=== PATIENT | female | born 1995 | race Caucasian/White ===

== ENCOUNTER 2018-10-27 12:35 | Inpatient (IN) | payer OTHER ==
[~2018-10-27 12:35] MED LIST: ELECTROLYTE-148 SOLN 1,000 ML IV SCH
[2018-10-27] MEDS ORDERED: CITRIC ACID/SODIUM CITRATE 30 ML UNIT-DOSE CUP PO ONE (12:48)
[2018-10-27] MEDS ORDERED: ELECTROLYTE-148 SOLN 1,000 ML IV SCH (13:00)
[2018-10-27 13:40] VITALS: BMI 47.2
[2018-10-27] MEDS ORDERED: OXYTOCIN 20 UNITS in 0.9% NS 20 UNIT/1,000 ML INFUS.BAG IV ONE (14:19)
[2018-10-27] MEDS ORDERED: morphine SULFATE/Preservative Free 0.5 MG/ML (1cc Syringe) ONE (14:22)
[2018-10-27] MEDS ORDERED: PROPOFOL 20 ML ONE ×2 (14:23)
[2018-10-27] MEDS ORDERED: SUCCINYLCHOLINE CHLORIDE 200 MG/10 ML VIAL ONE (14:23)
[2018-10-27] MEDS ORDERED: PHENYLEPHRINE HCL 10 MG/1 ML SINGLE DOSE VIAL ONE (14:23)
[2018-10-27] MEDS ORDERED: ceFAZolin SODIUM 1 GM VIAL ONE (14:23)
[2018-10-27] MEDS ORDERED: ePHEDrine SULFATE 50 MG/1 ML AMPULE ONE (14:24)
[2018-10-27] MEDS ORDERED: SODIUM CHLORIDE 0.9% P/F 10 ML VIAL IJ ONE (14:31)
[2018-10-27] MEDS ORDERED: OXYTOCIN 20 UNITS in 0.9% NS 40 UNIT/2,000 ML INFUS.BAG IV ONE (14:31)
--- NOTE | 2018-10-27 14:55 | HP ---
Past Medical History - Primary Care Physician PCP:: Walter Downing - Admission Chief Complaint: 39 weeks, previous c/s, request of repeat c/s History of Present Illness: 23 yo g 39 weeks, with 2 previous c/s requesting repeat c/s , risks of repeat c/s discussed ith patient, declined BTL at this time , aware of risks of future cx clp vx -3 mi, fhr cat 1, no contraction History Source: Patient Limitations to Obtaining History: No Limitations - Past Medical History ...: 4 ...Para: 2 ...Term: 3 ...: 0 ...Spon : 0 ...Induced : 0 ...Multiple Gestation: 0 ...LMP: 01/17/18 ... Weeks Gestation by Dates: 40.3 ...EDC by Dates: 10/24/18 ...EDC by Sono: 11/02/18 Infectious Disease: Yes: STD's, Other (hx of hsv, no recent out break on valterx prophyalctic) - Past Surgical History Past Surgical History: Yes: Hx Myomectomy: No Hx Transabdominal Cerclage: No - Smoking History Smoking history: Never smoked Have you smoked in the past 12 months: No - Alcohol/Substance Use Hx Alcohol Use: No - Social History Usual Living Arrangement: Yes: With Spouse History of Recent Travel: No Home Medications - Allergies Allergies/Adverse Reactions: Allergies Allergy/AdvReac Type Severity Reaction Status Date / Time No Known Allergies Allergy Verified 10/27/18 13:03 - Home Medications Home Medications: Ambulatory Orders Ferrous Sulfate [Feosol] 325 mg PO DAILY 08/13/14 Vit/Iron Fum/Folic AC [ Tablet] 1 each PO DAILY 08/13/14 Review of Systems - Review of Systems Constitutional: reports: No Symptoms Eyes: reports: No Symptoms HENT: reports: No Symptoms Neck: reports: No Symptoms Cardiovascular: reports: No Symptoms Respiratory: reports: No Symptoms Gastrointestinal: reports: No Symptoms Genitourinary: reports: No Symptoms Breasts: reports: No Symptoms Reported Musculoskeletal: reports: No Symptoms Integumentary: reports: No Symptoms Neurological: reports: No Symptoms Endocrine: reports: No Symptoms Hematology/Lymphatic: reports: No Symptoms Psychiatric: reports: No Symptoms Physical Exam - Maternity Vital Signs: Vital Signs Temperature 97.4 F L 10/27/18 13:00 Pulse Rate 104 H 10/27/18 13:00 Respiratory Rate 20 10/27/18 13:00 Blood Pressure 106/70 10/27/18 13:00 O2 Sat by Pulse Oximetry (%) Constitutional: Yes: Well Nourished, No Distress, Calm Eyes: Yes: WNL, Conjunctiva Clear, EOM Intact HENT: Yes: WNL, Atraumatic, Normocephalic Neck: Yes: WNL, Supple, Trachea Midline Cardiovascular: Yes: WNL, Regular Rate and Rhythm Breast(s): Yes: WNL - Abdominal Exam/OB Fundal Height: 40 Number of Fetuses: Single Presentation: Vertex Contractions: No Regularity: Irritability Intensity: Unaware Monitor Mode: External Heart Rate Location: [facility] Category: I Accelerations: Uniform Decelerations: None - Vaginal Exam/OB Vaginal Bleediing: No Speculum Exam: No Dilatation (cm): 0 Effacement (%): 0 Amniotic Membrane Status: Intact Presentation: Vertex/Position Station: -3 - Physical Exam Musculoskeletal: Yes: WNL Extremities: Yes: WNL Edema: Yes Edema: LLE: Trace, RLE: Trace Deep Tendon Reflex Grade: Normal +2 Hemorrhage Risk Assessment - Risk Factors Risk Score: 2 Risk Level: High Risk Problem List - Problems (1) with 39 completed weeks gestation Code(s): Z3A.39 - 39 WEEKS GESTATION OF (2) Previous section complicating Code(s): O34.219 - MATERNAL CARE FOR UNSP TYPE SCAR FROM PREVIOUS DEL (3) Obesity Code(s): E66.9 - OBESITY, UNSPECIFIED Qualifiers: Obesity type: due to excess calories Assessment/Plan repeat LST c/s , risks of procedure discussed , aware risks of infection, bleeding, injury to surrounding tissue , post op complication, DVT
[2018-10-27] MEDS ORDERED: oxyCODONE HCL 5 MG TABLET PO PRN (14:59)
[2018-10-27] MEDS ORDERED: IBUPROFEN 800 MG/8 ML IJ IVPB PRN (14:59)
[2018-10-27] MEDS ORDERED: METHYLERGONOVINE MALEATE 0.2 MG/1 ML AMP IM PRN (14:59)
[2018-10-27] MEDS ORDERED: WITCH HAZEL 50% (TUCKS) 40 PAD/JAR PAD TP PRN (14:59)
[2018-10-27] MEDS ORDERED: BENZOCAINE 28 GM HEMORRHOIDAL OINTMENT PR PRN (14:59)
[2018-10-27] MEDS ORDERED: diphenhydrAMINE HCL 25 MG CAPSULE (FP) PO PRN (14:59)
[2018-10-27] MEDS ORDERED: BENZOCAINE 20% 57 GM BOTTLE TP PRN (14:59)
[2018-10-27] MEDS ORDERED: OXYTOCIN 20 UNITS in 0.9% NS 20 UNIT/1,000 ML INFUS.BAG IV SCH (15:00)
[2018-10-27] MEDS ORDERED: DEXTROSE 5%-LACTATED RINGERS 1,000 ML IV SCH (15:00)
[2018-10-27] MEDS: OXYTOCIN 20 UNITS in 0.9% NS 20 UNIT/1,000 ML INFUS.BAG IV SCH ×2 (15:15→20:05)
[2018-10-27] MEDS ORDERED: KETOROLAC TROMETHAMINE 30 MG/1 ML VIAL ONE (15:23)
[2018-10-27] MEDS ORDERED: OXYTOCIN 10 UNITS/ML VIAL ONE (15:23)
[2018-10-27] MEDS ORDERED: morphine SULFATE/Preservative Free 0.5 MG/ML (1cc Syringe) EP ONE (16:16)
[2018-10-27] MEDS ORDERED: ONDANSETRON 4 MG/2 ML VIAL IVPUSH PRN (16:16)
--- NOTE | 2018-10-27 17:14 | OP ---
DATE OF OPERATION: 10/27/2018 PREOPERATIVE DIAGNOSES: , 39 weeks, 2 previous sections require of repeat section, declined tubal ligation. POSTOPERATIVE DIAGNOSES: , 39 weeks, 2 previous sections require of repeat section, declined tubal ligation. PROCEDURE: Repeat low segment transverse section and lysis of pelvic adhesions. SURGEON: Hannah Downing MD OFFICE WORKER: WANDER Cabrera ANESTHESIA: Spinal. ANESTHESIOLOGIST: Trina Martinez MD ESTIMATED BLOOD LOSS: 500 mL. FINDINGS: A live baby boy, 9 and 9, ROT position. OPERATION: Patient was taken to the operating room, and under adequate spinal anesthesia, abdomen and perineum was prepped and draped. Pfannenstiel abdominal skin incision was made over the previous incision. Abdominal wall was cut layer by layer until peritoneum was exposed and incised. Upon entering the abdominal cavity, there were multiple pelvic adhesions and omental adhesions to the peritoneum. These adhesions were lysed with cautery and hemostasis was established, and then the bladder was also entered into the anterior lower uterine segment. The bladder flap was developed, and bladder was dissected from the lower uterine with Metzenbaum scissors and bladder was pushed down. A low transverse uterine incision was made. Amniotic sac was entered. Clear fluid. Head delivered from right occiput transverse position. Nasopharynx was suctioned, and live baby boy was delivered. Placenta was delivered manually. Uterine cavity was cleaned of all the remaining tissue. Uterine incision was closed in 2 layers with first layer with 0 Biosyn continuous suture. The second layer with 0 Biosyn imbricating the first layer. There was some bleeding at the left uterine angle which where [id number] with 2-0 Biosyn was placed and hemostasis established. No active bleeding was seen. All the laparotomy pads, sponge, and instrument counts were correct. Both tubes and ovaries were normal. The peritoneum was closed with 0 Biosyn continuous suture. Muscles were brought together with interrupted suture of 0 Biosyn. Fascia was closed with 0 Biosyn continuous suture, subcutaneous fat with interrupted suture of 0 Biosyn, and the skin was closed with annetta. The patient tolerated the procedure well, left the OR in good condition. HANNAH DOWNING M.D. [id number]
[2018-10-27] MEDS ORDERED: CEFAZOLIN 1 GM/D5W 1 GM/50 ML BAG IVPB SCH (23:00)
[2018-10-27] MEDS: CEFAZOLIN 1 GM/D5W 1 GM/50 ML BAG IVPB SCH (23:06)
[2018-10-28] MEDS: CEFAZOLIN 1 GM/D5W 1 GM/50 ML BAG IVPB SCH (06:07)
[2018-10-28 08:24] LABS: BASO % 0.3 % (0-2.0); EOS % 0.6 % (0-4.5); HEMOGLOBIN 11.1 GM/dL (10.7-15.3); LYMPH % 21.5 % (8-40); MCH 29.1 pg (25.7-33.7); MCHC 33.8 g/dl (32.0-36.0); MEAN CELL VOLUME 86.2 fl (80-96); MONO % 5.7 % (3.8-10.2); NEUT % 71.9 % (42.8-82.8); PLATELET COUNT 155 K/MM3 (134-434); RBC 3.82 M/mm3 (3.60-5.2); RDW 15.6 % (11.6-15.6); WHITE BLOOD COUNT 7.6 K/mm3 (4.0-10.0)
--- NOTE | 2018-10-28 08:46 | PN ---
Progress Note (short form) - Note Progress Note: Post op day#1.S/P C Section under spinal anesthesia with duramorph uneventful.Patient stable and c/o little pain for which is on medication.No any anesthesia related problem.Patient DC from the anesthesia care.
[2018-10-28] MEDS: ENOXAPARIN NA (PORCINE) 40 MG/0.4 ML DISP.SYRIN SQ SCH (10:00)
[2018-10-28] MEDS ORDERED: ACETAMINOPHEN 325 MG TABLET (FP) PO PRN (13:21)
[2018-10-28] MEDS ORDERED: FLU VACCINE QUAD 60 MCG/0.5 ML (MDV 18-19) IM ONE (14:00)
[2018-10-28] MEDS ORDERED: DIPHTH,PERTUSS(ACELL),TET 0.5 ML DISP.SYRIN IM ONE (14:00)
--- NOTE | 2018-10-28 14:46 | PN ---
Post Progress Note - Subjective Subjective: 23yo Para 4 status post repeat , seen and evaluated. Doing well. Post Day: 1 Type of Delivery: Repeat C/S Vital Signs: Vital Signs Temperature 98.4 F 10/28/18 14:00 Pulse Rate 89 10/28/18 14:00 Respiratory Rate 20 10/28/18 14:00 Blood Pressure 120/73 10/28/18 14:00 O2 Sat by Pulse Oximetry (%) 100 10/27/18 17:25 Breast Exam: Yes: Soft Incision: Yes: Dressing dry and intact Abdomen/GI: Yes: Abdomen soft Lochia: Yes: Rubra Lochia, amount: Small Extremities: Yes: Calves non-tender (She's lying in bed) - Labs Labs: CBC WBC 7.6 K/mm3 (4.0-10.0) 10/28/18 08:00 RBC 3.82 M/mm3 (3.60-5.2) 10/28/18 08:00 Hgb 11.1 GM/dL (10.7-15.3) 10/28/18 08:00 Hct 33.0 % (32.4-45.2) 10/28/18 08:00 MCV 86.2 fl (80-96) 10/28/18 08:00 MCH 29.1 pg (25.7-33.7) 10/28/18 08:00 MCHC 33.8 g/dl (32.0-36.0) 10/28/18 08:00 RDW 15.6 % (11.6-15.6) 10/28/18 08:00 Plt Count 155 K/MM3 (134-434) D 10/28/18 08:00 MPV 8.0 fl (7.5-11.1) 10/28/18 08:00 Absolute Neuts (auto) 5.5 K/mm3 (1.5-8.0) 10/28/18 08:00 Neutrophils % 71.9 % (42.8-82.8) 10/28/18 08:00 Lymphocytes % 21.5 % (8-40) D 10/28/18 08:00 Monocytes % 5.7 % (3.8-10.2) 10/28/18 08:00 Eosinophils % 0.6 % (0-4.5) 10/28/18 08:00 Basophils % 0.3 % (0-2.0) 10/28/18 08:00 Nucleated RBC % 0 % (0-0) 10/28/18 08:00 Problem List - Problems (1) Status post repeat low transverse section Code(s): Z98.891 - HISTORY OF UTERINE SCAR FROM PREVIOUS SURGERY Assessment/Plan Status post repeat Ambulation Analgesia as needed Continue routine post op care
[2018-10-28] MEDS ORDERED: BISACODYL 10 MG SUPP.RECT RC PRN (14:59)
[2018-10-28] MEDS: SIMETHICONE 80 MG TAB.CHEW (FP) PO PRN (16:44)
[2018-10-28] MEDS: ACETAMINOPHEN 325 MG TABLET (FP) PO PRN (16:45)
[2018-10-29] MEDS: oxyCODONE HCL 5 MG TABLET PO PRN ×3 (00:52→22:01)
[2018-10-29] MEDS: SIMETHICONE 80 MG TAB.CHEW (FP) PO PRN ×2 (00:53→14:02)
[2018-10-29] MEDS: ACETAMINOPHEN 325 MG TABLET (FP) PO PRN ×2 (00:53→14:00)
--- NOTE | 2018-10-29 09:56 | PN ---
Post Progress Note - Subjective Subjective: pain scale 7/10 voiding without difficulty bm not done, passing flatus Post Day: 2 Type of Delivery: Repeat C/S Vital Signs: Vital Signs Temperature 98.3 F 10/29/18 09:43 Pulse Rate 79 10/29/18 09:43 Respiratory Rate 18 10/29/18 09:43 Blood Pressure 112/69 10/29/18 09:43 O2 Sat by Pulse Oximetry (%) 100 10/27/18 17:25 Breast Exam: Yes: Soft, Other (both breast & bottle feeding ). No: Engorged Uterus: Yes: Fundus Firm, Fundus below umbilicus, Non-tender Incision: Yes: Edinson intact. No: Redness, Oozing Abdomen/GI: Yes: Abdomen soft, Passing flatus, Tolerating PO (diet ). No: Abdominal Distention, Tender Lochia: Yes: Rubra Lochia, amount: Moderate Extremities: Yes: Calves non-tender Perineum: Yes: Intact Activity: Ambulating - Labs Labs: CBC WBC 7.6 K/mm3 (4.0-10.0) 10/28/18 08:00 RBC 3.82 M/mm3 (3.60-5.2) 10/28/18 08:00 Hgb 11.1 GM/dL (10.7-15.3) 10/28/18 08:00 Hct 33.0 % (32.4-45.2) 10/28/18 08:00 MCV 86.2 fl (80-96) 10/28/18 08:00 MCH 29.1 pg (25.7-33.7) 10/28/18 08:00 MCHC 33.8 g/dl (32.0-36.0) 10/28/18 08:00 RDW 15.6 % (11.6-15.6) 10/28/18 08:00 Plt Count 155 K/MM3 (134-434) D 10/28/18 08:00 MPV 8.0 fl (7.5-11.1) 10/28/18 08:00 Absolute Neuts (auto) 5.5 K/mm3 (1.5-8.0) 10/28/18 08:00 Neutrophils % 71.9 % (42.8-82.8) 10/28/18 08:00 Lymphocytes % 21.5 % (8-40) D 10/28/18 08:00 Monocytes % 5.7 % (3.8-10.2) 10/28/18 08:00 Eosinophils % 0.6 % (0-4.5) 10/28/18 08:00 Basophils % 0.3 % (0-2.0) 10/28/18 08:00 Nucleated RBC % 0 % (0-0) 10/28/18 08:00 Problem List - Problems (1) delivery delivered Code(s): O82 - ENCOUNTER FOR DELIVERY WITHOUT INDICATION (2) Encounter for care after hospital delivery Code(s): Z39.2 - ENCOUNTER FOR ROUTINE FOLLOW-UP Assessment/Plan stable. ct post op care may consider discharge tomorrow.
[2018-10-29] MEDS: ENOXAPARIN NA (PORCINE) 40 MG/0.4 ML DISP.SYRIN SQ SCH (10:36)
[2018-10-29] MEDS ORDERED: SENNOSIDES/DOCUSATE COMBO (SENNA PLUS) TABLET (UD) PO PRN (22:00)
[2018-10-29] MEDS: IBUPROFEN 600 MG TABLET (FP) PO PRN (22:01)
--- NOTE | 2018-10-30 06:38 | PN ---
Post Progress Note Type of Delivery: Repeat C/S Vital Signs: Vital Signs Temperature 97.9 F 10/29/18 21:00 Pulse Rate 91 H 10/29/18 21:00 Respiratory Rate 18 10/29/18 21:00 Blood Pressure 106/67 10/29/18 21:00 O2 Sat by Pulse Oximetry (%) 100 10/27/18 17:25 Uterus: Yes: Fundus below umbilicus Incision: Yes: Dressing dry and intact Abdomen/GI: Yes: Abdomen soft Lochia: Yes: Rubra Lochia, amount: Small Extremities: Yes: Calves non-tender Perineum: Yes: Intact - Labs Labs: CBC WBC 7.6 K/mm3 (4.0-10.0) 10/28/18 08:00 RBC 3.82 M/mm3 (3.60-5.2) 10/28/18 08:00 Hgb 11.1 GM/dL (10.7-15.3) 10/28/18 08:00 Hct 33.0 % (32.4-45.2) 10/28/18 08:00 MCV 86.2 fl (80-96) 10/28/18 08:00 MCH 29.1 pg (25.7-33.7) 10/28/18 08:00 MCHC 33.8 g/dl (32.0-36.0) 10/28/18 08:00 RDW 15.6 % (11.6-15.6) 10/28/18 08:00 Plt Count 155 K/MM3 (134-434) D 10/28/18 08:00 MPV 8.0 fl (7.5-11.1) 10/28/18 08:00 Absolute Neuts (auto) 5.5 K/mm3 (1.5-8.0) 10/28/18 08:00 Neutrophils % 71.9 % (42.8-82.8) 10/28/18 08:00 Lymphocytes % 21.5 % (8-40) D 10/28/18 08:00 Monocytes % 5.7 % (3.8-10.2) 10/28/18 08:00 Eosinophils % 0.6 % (0-4.5) 10/28/18 08:00 Basophils % 0.3 % (0-2.0) 10/28/18 08:00 Nucleated RBC % 0 % (0-0) 10/28/18 08:00 Assessment/Plan 23yo s/p RLTCS, POD#3 Routine PP carLle Labs reviewed Anticipate dc to home by POD#4 Carrington Molina
[2018-10-30 08:09] LABS: BASO % 0.4 % (0-2.0); EOS % 2.1 % (0-4.5); HEMATOCRIT 30.7 % (32.4-45.2); HEMOGLOBIN 10.3 GM/dL (10.7-15.3); LYMPH % 38.5 % (8-40); MCHC 33.6 g/dl (32.0-36.0); MEAN CELL VOLUME 86.4 fl (80-96); MEAN PLT VOLUME 8.1 fl (7.5-11.1); MONO % 6.6 % (3.8-10.2); NEUT % 52.4 % (42.8-82.8); PLATELET COUNT 163 K/MM3 (134-434); RBC 3.56 M/mm3 (3.60-5.2); RDW 15.7 % (11.6-15.6); WHITE BLOOD COUNT 6.6 K/mm3 (4.0-10.0)
[2018-10-30] MEDS: ENOXAPARIN NA (PORCINE) 40 MG/0.4 ML DISP.SYRIN SQ SCH (09:13)
[2018-10-31] MEDS: ACETAMINOPHEN 325 MG TABLET (FP) PO PRN (00:11)
[2018-10-31] MEDS: IBUPROFEN 600 MG TABLET (FP) PO PRN (00:11)
--- NOTE | 2018-10-31 07:57 | DS ---
Physical Exam-COLLECTION ADMINISTRATOR Vital Signs: Vital Signs Temperature 97.9 F 10/30/18 21:29 Pulse Rate 76 10/30/18 21:29 Respiratory Rate 20 10/30/18 21:29 Blood Pressure 120/68 10/30/18 21:29 O2 Sat by Pulse Oximetry (%) 100 10/27/18 17:25 Constitutional: Yes: Well Nourished, No Distress, Calm Eyes: Yes: WNL, Conjunctiva Clear, EOM Intact HENT: Yes: WNL, Atraumatic, Normocephalic Neck: Yes: WNL, Supple, Trachea Midline Cardiovascular: Yes: WNL, Regular Rate and Rhythm Respiratory: Yes: WNL, Regular, CTA Bilaterally Gastrointestinal: Yes: WNL ...Rectal Exam: Yes: WNL Renal/: Yes: WNL ....Post : Yes: Uterus firm, Uterus non-tender, Slight lochia rubra Breast(s): Yes: WNL Musculoskeletal: Yes: WNL Extremities: Yes: WNL Edema: LLE: Trace, RLE: Trace Integumentary: Yes: WNL Neurological: Yes: WNL, Alert, Oriented ...Motor Strength: WNL Psychiatric: Yes: WNL, Alert, Oriented Labs: CBC, BMP 10/30/18 07:35 Delivery - Delivery Section: Repeat (no complication) Type of Anesthesia: Spinal Episiotomy/Laceration: None EBL (cc): 500 Delivery, Single - Stages of Labor Date of Delivery: 10/27/18 Time of Delivery: 15:14 Time Placenta Delivered: 15:15 Placenta: Yes: Expressed - Condition of Floor Cleaner/Residential Real Estate Sales Manager Present: Yes Name: Prema Barboza Infant Gender: Male Weight: 7 lb 4 oz Position: Right, OT Total Hours ROM (Hrs/Mins): 0/2 - 1 Minute Total Score: 9 5 Minutes Total Score: 9 - [place] Feeding Plan Initial Plan: Elected not to breastfeed exclusively throughout hospitalization Discharge Summary Reason For Visit: REPEAT C SECTION Current Active Problems delivery delivered (Acute) Encounter for care after hospital delivery (Acute) Obesity (Acute) with 39 completed weeks gestation (Acute) Previous section complicating (Acute) Status post repeat low transverse section (Acute) Procedures: Principal: repeat LST c/s Hospital Course: no complication Condition: Stable - Instructions Diet, Activity, Other Instructions: Regular Diet return to clinic in 1 week for annetta removal and 6 weeks for check. call [facility] for appointment. [phone] Referrals: Walter Downing MD [Staff Physician] - Disposition: HOME - Home Medications Comprehensive Discharge Medication List: Ambulatory Orders Ferrous Sulfate [Feosol] 325 mg PO DAILY 08/13/14 Vit/Iron Fum/Folic AC [ Tablet] 1 each PO DAILY 08/13/14 Ibuprofen 600 mg PO Q6H PRN #30 tablet 10/30/18
[2018-10-31 08:24] VITALS: BP 123/76; PULSE 68; TEMP 97.7
[2018-10-31] MEDS: ENOXAPARIN NA (PORCINE) 40 MG/0.4 ML DISP.SYRIN SQ SCH (09:49)
--- NOTE | 2018-11-05 18:49 | PATH ---
Surgical Pathology Report Patient Name: IRENE TRIANA Med. Rec. #: [id number] /Age/Gender: 1995 (Age: 23) / F Account: [id number] Location: [facility] OBS/EDITOR BOOK Taken: 10/27/2018 Received: 10/28/2018 Reported: 11/05/2018 Physicians: Walter Downing M.D. Specimen(s) Received PLACENTA Clinical History , 39.1 weeks for repeat Final Diagnosis PLACENTA: THIRD TRIMESTER PLACENTA. TRIVASCULAR CORD. MEMBRANES WITH NO DIAGNOSTIC ABNORMALITIES. Electronically Signed Violeta Ibrahim M.D. Gross Description The specimen is received fresh labeled placenta and is a 441 gram, 16.5 x 13.5 x 2.8 cm. placenta with attached membranes and umbilical cord. The attached membranes are haynes, translucent with opacities and insert marginally. The umbilical cord measures 35 cm. in length and averages 1.1 cm. in diameter. The cord inserts eccentrically, 4 cm. to the nearest margin. No true knots or strictures are identified. Cut surface of the umbilical cord reveals 3 vessels. The surface is fleming blue with moderate fibrin deposition and appropriate caliber vessels. The maternal surface is red-brown with focal defects. Sectioning reveals red-brown, spongy parenchyma. No lesions are identified. Residential Energy Auditor sections are submitted in three cassettes as follows: 1- membrane rolls and umbilical cord; 2-3- full thickness sections of placenta. /11/04/2018 [place]/11/04/2018
== END 2018-10-31 13:30 | disposition home or self-care (01) | DRG 540 ==
LOC: JLDR 12:35 → J3W 17:40
PROVIDERS: ADMIT Obstetrics & Gynecology; ATTEND Obstetrics & Gynecology
PROC: 10D00Z1 Extraction of Products of Conception, Low, Open Approach (ICD-10-PCS; principal; 2018-10-27)
DX: O34.211 Maternal care for low transverse scar from previous cesarean delivery (principal); O98.313 Other infections with a predominantly sexual mode of transmission complicating pregnancy, third trimester; O67.9 Intrapartum hemorrhage, unspecified; A60.09 Herpesviral infection of other urogenital tract; Z3A.39 39 weeks gestation of pregnancy; Z37.0 Single live birth
CPT/HCPCS: 36415; 85025; 88307-TC; 90686; 90715; G0008